=== PATIENT | male | born 1995 | race Caucasian/White ===

== ENCOUNTER → 2020-05-16 17:48 | Outpatient (BNVA) | payer SELFPAY | PROVIDERS: Visit Provider Nurse Practitioner Family | DX: Z20.828 Contact with and (suspected) exposure to other viral communicable diseases (principal) | CPT/HCPCS: 87635 ==

== ENCOUNTER 2020-10-09 11:33 | Emergency (ER) | payer SELFPAY ==
[2020-10-09 11:53] VITALS: BP 130/88; PULSE 100; RESP 16; TEMP 36.7; O2SAT 97; BMI 37.8
--- NOTE | 2020-10-09 14:36 | W.ED.GENADLT ---
HPI - General Adult General: Chief complaint: General Medical Stated complaint: Stomach Pains Time Seen by Provider: 10/09/20 14:30 History of Present Illness: HPI narrative: Patient reports with vomiting starting on Friday evening. Patient thought that he might of just got overheated and has had several episodes of vomiting that night. On Friday patient started having diarrhea. Patient has continued to have diarrhea since Friday throughout Friday and then twice today. Patient reports he is able to hold down fluids but every time he drinks he has to use the bathroom. Patient reports mild abdominal discomfort but no localization. Patient appears well. Patient appears in no pain. Patient denies any chronic medical problems. Patient has taken some loperamide once or twice with minimal relief or diarrhea. Onset (ago): day(s) Radiation: non-radiation Severity: mild Quality: dull Pain Consistency: intermittent Associated symptoms: Reports nausea and vomiting Review of Systems General: Reports: 10 or more systems reviewed and unremarkable except in HPI and below GI: Reports: nausea, vomiting and diarrhea PFS ED PFSH: Social History (Updated 05/16/20 @ 17:29 by Myrna Kern NP) Smoking and tobacco status: current every day smoker cigarettes Alcohol intake: current Alcohol intake frequency: holidays/special occasions only Physical Exam Const: COMMON NORMALS: no acute distress and patient oriented x3 GENERAL APPEARANCE: cooperative HENMT: COMMON NORMALS: normocephalic and Normal external nose present HEAD & SCALP: normal to inspection and normocephalic NOSE: Normal external nose present MOUTH: Normal oral and palatal mucosa present Eye: GENERAL EYE: appearance normal, both eyes and all related structures Neck/C-Spine: COMMON NORMALS: full ROM Chest: COMMONS NORMALS: normal inspection of the chest Resp: COMMON NORMALS: normal respiratory effort EFFORT & INSPECTION: Yes able to speak in complete sentences Cardio: COMMON NORMALS: regular rate and regular rhythm RATE: regular rate RHYTHM: regular rhythm GI: COMMON NORMALS: Soft to palpation and non-tender INSPECTION: Yes normal to inspection AUSCULTATION: Yes Hyperactive bowel sounds present PALPATION: Yes Soft to palpation : COMMON NORMALS: Yes no CVA tenderness BLADDER/KIDNEY EXAM: Yes no CVA tenderness Back/Pelvis: COMMON NORMALS: no CVA tenderness and thoracic and lumbar spine normal to inspection Extremity: COMMON NORMALS: normal to inspection Neuro: COMMON NORMALS: patient oriented x3 and moves all extremities Psych: COMMON NORMALS: mental status grossly normal and cooperative Skin: COMMON NORMALS: no rashes or lesions noted GENERAL SKIN EXAM: no rashes or lesions noted Course Vital Signs: Vital signs: Vital Signs Temperature 98.0 F 10/09/20 11:53 Pulse Rate 98 10/09/20 15:41 Respiratory Rate 16 10/09/20 11:53 Blood Pressure 127/85 10/09/20 15:41 Pulse Oximetry 97 10/09/20 15:41 MDM - General Adult MDM Narrative: Medical decision making narrative: Patient comes in today with nausea and vomiting on Friday evening changing to diarrhea on Friday and persisting throughout the weekend. Patient reports continues to have diarrhea every time he drinks or eats. Patient appears mildly unwell but not toxic. Oral mucosa is mildly dry. Abdomen soft nontender. Vital signs are normal. Differential diagnosis includes but not limited to viral gastroenteritis, dehydration, heat exhaustion. Patient had thought he might of got overheated but I believe patient probably has a bout of gastroenteritis. Laboratory values noted some elevation hemoglobin hematocrit but the rest of his labs were unremarkable except for some mild elevation in bilirubin. Liver enzymes were otherwise normal. Urinalysis showed some oxalate crystals and some ketones along with some elevation in specific gravity. Patient was hydrated with 2 L of IV fluids with improvement in symptoms and distress. Recommended patient continue with oral fluids and increasing diet as tolerated. Patient reported understanding of care plan and need for follow-up or return to the ER. Lab Data: Labs: Lab Results 10/09/20 10/09/20 10/09/20 Range/Units 15:32 15:32 15:58 WBC 10.6 H (4.0-10.0) 10^3/ uL RBC 6.86 H (4.1-5.3) 10^6/u L Hgb 18.9 H (11.7-16.6) g/dL Hct 55.6 H (42.0-52.0) % MCV 81.0 (80-94) fL MCH 27.6 L (28.0-34.0) pg MCHC 34.0 (30.0-36.0) g/dL RDW 13.2 (12.1-15.1) % Plt Count 340 (130-400) 10^3/c mm MPV 9.9 (7.4-10.4) fL Neut % (Auto) 62.1 % Lymph % (Auto) 24.2 % Dawson % (Auto) 11.0 % Eos % (Auto) 2.1 % Baso % (Auto) 0.4 % Neut # (Auto) 6.58 (1.8-7.7) 10^3/u L Lymph # (Auto) 2.6 (0.8-4.8) 10^3/u L Dawson # (Auto) 1.2 H (0.2-0.9) 10^3/u L Eos # (Auto) 0.2 (0.0-0.8) 10^3/u L Baso # (Auto) 0.0 (0.0-0.1) 10^3/u L Nucleated RBC % (a uto) 0 % Nucleated RBCs # 0.0 /100WBC Sodium 136 (136-145) mmol/L Potassium 4.0 (3.5-5.1) mmol/L Chloride 101 (98-107) mmol/L Carbon Dioxide 22 (22-29) mmol/L Anion Gap 17.0 (5-19) BUN 17 (6-20) mg/dL Creatinine 1.0 (0.7-1.2) mg/dL GFR Calculation 91.8 (90-130) mL/min Glucose 98 (65-115) mg/dL Calculated Osmolal ity 284 L (285-295) mOsm/k g Calcium 9.5 (8.5-10.5) mg/dL Total Bilirubin 1.6 H (0.15-1.2) mg/dL AST 30 (0-40) U/L ALT 64 H (0-41) U/L Alkaline Phosphata se 65 (40-130) IU/L Creatine Kinase 148 (39-308) U/L Total Protein 7.7 (6.6-8.7) g/dL Albumin 4.6 (3.5-5.2) g/dL Globulin 3.1 (1.3-4.6) g/dL Urine Color Yellow (Yellow) Urine Appearance Sl hazy (CLEAR) Urine pH 5 (5-7) Ur Specific Gravit y 1.025 (1.005-1.030) Urine Protein 3+ H (Negative) Urine Glucose (UA) Norm (Normal) Urine Ketones Negative (Negative) Urine Blood 2+ H (Negative) Urine Nitrate Negative (Negative) Urine Bilirubin 1+ H (Negative) Urine Urobilinogen Norm (Negative) mg/dL Ur Leukocyte Ashtyn ase Negative (Negative) Urine RBC 0-4 H (0-2) /hpf Urine WBC None (0-5) /hpf Ur Squamous Epith Cells None (0-5) /hpf Calcium Oxalate Cr ystal 5-10 H /hpf Amorphous Sediment Not Reportable Urine Bacteria Trace (NONE) /hpf Coarse Granular Ca sts 0-4 H /lpf Urine Mucus 1+ /hpf Discharge Plan Discharge Patient Disposition: Home Clinical Impression: Acute dehydration, Gastroenteritis Condition: Stable Prescriptions: New ondansetron 4 mg tablet,disintegrating 4 mg PO Q8H PRN (Reason: nausea and vomiting) Qty: 7 RF: 0 No Action Imodium A-D 1 mg/7.5 mL Liquid 2 mg PO Q2H PRN (Reason: Diarrhea) RF: 0 Discharge Orders: Discharge ED (Routine); Ordered 10/09/20 Ordered By: Rufino Goodwin Discharge Diet: Advance as tolerated Discharge Activity: Increase activity as tolerated Patient Instructions: Dehydration (ED), Gastroenteritis (ED), Opioid Safety Activity Restrictions/Additional Instructions: Drinking electrolyte solution like Pedialyte until diarrhea stops. If you cannot tolerate the taste of Pedialyte you may try Gatorade diluted in half with water. Continue with Imodium as needed for diarrhea up to 6 capsules a day. Try adding back bland foods such as bananas, rice, apples, toast, boiled chicken to add bulk to your bowels. Avoid foods which are acidic, spicy, or greasy, until diarrhea and nausea passes. Follow-up with primary care as needed. Return to the ER for new concerns. Stand Alone Forms: Work/School Release Coding Level of Care Code ED [employer] Fwd Exam Comprehensive
[2020-10-09] MEDS: lactated ringers 1,000 ML 999 ML IV (15:39)
[2020-10-09 15:41] VITALS: BP 127/85; PULSE 98; O2SAT 96; O2SAT 97
[2020-10-09 15:41] LABS: Basophils % 0.4 %; Eosinophils # 0.2 10^3/uL (0.0-0.8); Eosinophils % 2.1 %; Hematocrit 55.6 % (42.0-52.0); Hemoglobin 18.9 g/dL (11.7-16.6); Lymphocytes # 2.6 10^3/uL (0.8-4.8); Lymphocytes % 24.2 %; Mean Corpuscular Hemoglobin 27.6 pg (28.0-34.0); Mean Platelet Volume 9.9 fL (7.4-10.4); Monocytes # 1.2 10^3/uL (0.2-0.9); Neutrophils # 6.58 10^3/uL (1.8-7.7); Neutrophils % 62.1 %; Nucleated Red Blood Cells % 0 %; Platelet Count 340 10^3/cmm (130-400); Red Blood Count 6.86 10^6/uL (4.1-5.3); Red Cell Distribution Width 13.2 % (12.1-15.1); White Blood Count 10.6 10^3/uL (4.0-10.0)
[2020-10-09 15:55] LABS: Alanine Aminotransferase 64 U/L (0-41); Albumin Level 4.6 g/dL (3.5-5.2); Alkaline Phosphatase 65 IU/L (40-130); Aspartate Amino Transferase 30 U/L (0-40); Blood Urea Nitrogen 17 mg/dL (6-20); Calcium 9.5 mg/dL (8.5-10.5); Carbon Dioxide 22 mmol/L (22-29); Chloride 101 mmol/L (98-107); Creatine Phosphokinase 148 U/L (39-308); Globulin 3.1 g/dL (1.3-4.6); Glomerular Filtration Rate 91.8 mL/min (90-130); Glucose 98 mg/dL (65-115); Osmolality Calculated 284 mOsm/kg (285-295); Sodium 136 mmol/L (136-145); Total Bilirubin 1.6 mg/dL (0.15-1.2); Total Protein 7.7 g/dL (6.6-8.7)
[2020-10-09 16:13] LABS: Bilirubin Urine 1+ (Negative); Blood Urine 2+ (Negative); Glucose Urine UA Norm (Normal); Ketones Urine Negative (Negative); Leukocyte Esterase Urine Negative (Negative); Nitrate Urine Negative (Negative); Protein Urine 3+ (Negative); Specific Gravity, Urine 1.025 (1.005-1.030); Urine Appearance SL Hazy (CLEAR); Urine Color Yellow (Yellow); Urobilinogen Urine Norm (Negative); pH Urine 5 (5-7)
[2020-10-09 16:14] LABS: Add Urine Microscopic? YES
[2020-10-09 16:18] LABS: RBC Urine 0-4 /hpf (0-2)
[2020-10-09 16:19] LABS: Add Urine Culture? No; Bacteria Urine TRACE /hpf; Coarse Granular Casts Urine 0-4 /lpf; Mucus Urine 1+ /hpf
[2020-10-09] MEDS: sodium chloride 0.9% 1,000 ML 999 ML IV (16:32)
[2020-10-09 17:38] VITALS: BP 132/80; PULSE 85; RESP 18; TEMP 36.6; O2SAT 99
== END 2020-10-09 17:47 | disposition home or self-care (01) ==
PROVIDERS: Emergency Provider Nurse Practitioner Family
DX: K52.9 Noninfective gastroenteritis and colitis, unspecified (principal); E86.0 Dehydration; F17.210 Nicotine dependence, cigarettes, uncomplicated
CPT/HCPCS: 80053; 81001; 82550; 85025; 96360; 99283; J7030